=== PATIENT | female | born 1975 | race Caucasian/White ===

== ENCOUNTER 2017-07-21 14:41 | Outpatient (CLI) | payer OTHER ==
[2017-07-21 15:32] LABS: #Basophils 0.1 thou/uL (0.0-0.2); #Eosinphils 0.1 thou/uL (0.0-0.7); #Lymphocytes 1.7 thou/uL (1.20-3.40); #Monocytes 0.6 thou/uL (0.11-0.59); #Neutrophils 2.9 thou/uL (1.40-6.50); %Basophils 1.1 % (0.0-1.0); %Eosinophils 1.9 % (0.0-10.0); %Lymphocytes 31.4 % (21.0-51.0); %Monocytes 10.4 % (0.0-10.0); %Neutrophils 55.1 % (42.0-75.0); Hemoglobin 13.9 g/dL (12.0-16.0); Mean Corpuscular HGB CONC 31.9 g/dL (32.0-36.0); Mean Corpuscular Volume 87.7 fl (81.0-99.0); Mean Platelet Volume 8.2 fL (7.4-10.4); Platelet Count 279 thou/uL (130-400); RBC Distribution Width 12.1 % (11.5-14.5); Red Blood Cell (RBC) Count 4.96 mill/uL (4.20-5.40); White Blood Cell (WBC) Count 5.3 thou/uL (4.8-10.8)
[2017-07-21 15:53] LABS: ALT (SGPT) 76 U/L (8-55); AST (SGOT) 55 U/L (5-34); Albumin 4.5 g/dL (3.5-5.0); Alkaline Phosphatase 120 U/L (40-150); Anion Gap 13 mmol/L (10-20); BUN (Urea Nitrogen) 9 mg/dL (7.0-18.7); Bilirubin, Direct 0.2 mg/dL (0.1-0.3); Bilirubin, Total 0.4 mg/dL (0.2-1.2); Calc. Creatinine Clearance 0 mL/min (70-130); Calcium 10.4 mg/dL (7.8-10.44); Carbon Dioxide 27 mmol/L (22-29); Chloride 106 mmol/L (98-107); Estimated GFR-MDRD 89; Globulin 2.8 g/dL (2.4-3.5); Glucose 92 mg/dL (70-105); Potassium 4.6 mmol/L (3.5-5.1); Protein, Total 7.3 g/dL (6.0-8.3); Sodium 141 mmol/L (136-145)
== END 2017-07-21 14:42 | disposition home or self-care (01) ==
LOC: LABBT 14:41
PROVIDERS: ATTEND Surgery
DX: Z01.812 Encounter for preprocedural laboratory examination (principal); K80.20 Calculus of gallbladder without cholecystitis without obstruction
CPT/HCPCS: 80053; 80076; 85025

== ENCOUNTER 2017-07-22 05:36 | Day surgery (SDC) | payer OTHER ==
[2017-07-21 15:39] VITALS: BMI 25.6
[2017-07-22] MEDS ORDERED: Iothalamate Meglumine 60% 50 ML VIAL FS ONE (06:43)
[2017-07-22] MEDS ORDERED: Bupivacaine/Epinephrine 0.25% 30 ML VIAL ONE (06:43)
[2017-07-22] MEDS ORDERED: Midazolam HCl 2 mg/2 ml Vial ONE ×2 (06:46→07:07)
[2017-07-22] MEDS ORDERED: Fentanyl 250 MCG/5 ML VIAL ONE (06:46)
[2017-07-22] MEDS ORDERED: cefOXitin 2 GM, Syringe 1 ML in Sterile Water 10 ML SLOW IVP SCH (07:15)
--- NOTE | 2017-07-22 08:51 | OP ---
DATE OF PROCEDURE: 07/22/2017 PREOPERATIVE DIAGNOSIS: Symptomatic cholelithiasis. SURGEON: Blaine Mata M.D. PROCEDURE PERFORMED: Laparoscopic cholecystectomy with intraoperative cholangiogram. INDICATIONS: This is a 42-year-old female who has been having episodic and severe right upper quadra nt pain radiating to back. Ultrasound showed cholelithiasis. FINDINGS: She had a lot of adhesions to the gallbladder. There was a small caliber cystic duct. Th e cholangiogram showed free flow into the duodenum without filling defects. PROCEDURE: After informed consent was obtained, the patient was taken to the operating room and give n general endotracheal anesthesia. She was placed in the supine position. The abdomen was prepped a nd draped in usual fashion. Local anesthesia infiltrated subcutaneously and deep with 0.5% Marcaine. A subumbilical incision was performed. The subcu divided sharply. The fascia grasped and two stay sutures of 0 Vicryl placed to either side of midline. Midline incised. Digital palpation revealed no local adhesions. A blunt 10/12 mm trocar inserted. Pneumoperitoneum was created to a pressure of 15 mmHg. Zero degree laparoscope inserted under direct vision, three 5 mm ports placed subcostally. The gallbladder was grasped and adhesions were lysed sharply. The peritoneum opened and the cystic duct, cystic artery and critical view were exposed. Three clips were placed, the artery was divided . A clip was placed at the base of the gallbladder. Incision made in the cystic duct. The Arrow ch olangiocatheter inserted within the cystic duct and an intraoperative cholangiogram was performed uti lizing fluoroscopy. This showed free flow in the duodenum, small caliber common bile duct, no fillin g defects. The catheter removed. The cystic duct triply ligated and divided. Then the gallbladder was removed from its fossa utilizing electrocautery. It was removed from the abdomen through the umb ilical port. Hemostasis was assured. Trocars and retractors removed. The fascia closed with 0 Vicr yl suture. The skin closed with interrupted 4-0 Rapide. Dermabond applied. The patient tolerated t he procedure well and was transferred to recovery in good condition. Sponge and needle count verifie d correct x2.
[2017-07-22] MEDS ORDERED: Fentanyl 100 MCG/2 ML VIAL ONE ×2 (08:55→09:52)
[2017-07-22] MEDS ORDERED: Ketorolac Tromethamine 30 MG/ML VIAL ONE (08:55)
[2017-07-22] MEDS ORDERED: Ondansetron HCl/PF 4 MG/2 ML Vial ONE (11:28)
[2017-07-22] MEDS ORDERED: Lidocaine 1% PF 5 ML VIAL ONE (11:28)
[2017-07-22] MEDS ORDERED: Dexamethasone 20 MG/5 ML VIAL ONE (11:28)
[2017-07-22] MEDS ORDERED: Glycopyrrolate 0.2 MG/ML 5 ML SYRINGE ONE (11:28)
[2017-07-22] MEDS ORDERED: PROPOFOL 200 MG/20 ML VIAL ONE (11:28)
--- NOTE | 2017-07-22 14:30 | RAD ---
INTRAOPERATIVE CHOLANGIOGRAM: Date: 07-22-17 Comparison: None. History: Laparoscopic cholecystectomy with cholangiogram. FINDINGS: Detailed assessment is limited as only a single image is provided. The provided image demonstrates an opacified common bile duct with no evidence for a CBD filling defect. There is contrast media within the duodenum as well. Post-operative clips are noted in the right upper quadrant. IMPRESSION: No filling defects seen in the contrast opacified portions of the biliary tree. POS: GUSTAVO
== END 2017-07-22 11:38 | disposition home or self-care (01) ==
LOC: SDC 05:36
PROVIDERS: ATTEND Surgery
PROC: 0FT44ZZ Resection of Gallbladder, Percutaneous Endoscopic Approach (ICD-10-PCS; principal; 2017-07-22)
PROC: BF101ZZ Fluoroscopy of Bile Ducts using Low Osmolar Contrast (ICD-10-PCS; principal; 2017-07-22)
DX: K80.10 Calculus of gallbladder with chronic cholecystitis without obstruction (principal); Z79.899 Other long term (current) drug therapy
CPT/HCPCS: 47532; 88304; 96374; A4216; J0694; J1100; J1885; J2001; J2250; J2405; J2704; J3010; Q9961

== ENCOUNTER 2024-12-15 13:25 | Outpatient (CLI) | payer OTHER | END 2024-12-15 13:26 | disposition home or self-care (01) | LOC: SCSBT 13:25 | PROVIDERS: ATTEND Obstetrics & Gynecology | DX: Z13.820 Encounter for screening for osteoporosis (principal); M85.89 Other specified disorders of bone density and structure, multiple sites | CPT/HCPCS: 77080 ==